=== PATIENT | male | born 1985 | race Caucasian/White ===

== ENCOUNTER 2020-08-23 21:01 | Emergency (ER) | payer OTHER ==
[~2020-08-23] VITALS: Ht 175.3 cm; Wt 74.8 kg
[2020-08-24] MEDS ORDERED: PERCOCET 5-3251 EACH PO (09:44)
== END 2020-08-24 10:07 | disposition home or self-care (01) ==
LOC: ER 21:01
DX: S43.81XA Sprain of other specified parts of right shoulder girdle, initial encounter (principal); M54.2 Cervicalgia; M62.82 Rhabdomyolysis; R74.8 Abnormal levels of other serum enzymes; X50.0XXA Overexertion from strenuous movement or load, initial encounter; Y93.B9 Activity, other involving muscle strengthening exercises; Y92.39 Other specified sports and athletic area as the place of occurrence of the external cause; Y99.8 Other external cause status